=== PATIENT | female | born 1960 | race African-American/Black ===

== ENCOUNTER 2018-05-08 20:40 | Emergency (ER) | payer SELFPAY ==
[~2018-05-08] VITALS: Ht 162.6 cm; Wt 69.0 kg
[~2018-05-08 20:40] MED LIST: AMLO10TA80; BENA20TA10; HYDR25TA
[2018-05-08] MEDS ORDERED: MORPHINE SULFATE 4 MG/ML CPJ (NOT FOR IM USE) IV ONE (21:45)
[2018-05-08] MEDS ORDERED: MORPHINE SULFATE 2 MG/ML CPJ (NOT FOR IM USE) IV NR (21:45)
[2018-05-08] MEDS ORDERED: MORPHINE SULFATE 10 MG/ML CPJ IV NR (21:57)
[2018-05-08] MEDS ORDERED: LIDOCAINE HCL 1% 20ML VIAL (Pyxis) INJ INFIL ONE (22:15)
[2018-05-08] MEDS ORDERED: ONDANSETRON HCL 4MG/2ML INJ IV ONE (23:15)
[2018-05-09 00:39] VITALS: BP 149/82
== END 2018-05-09 00:42 | disposition home or self-care (01) ==
LOC: ER 23:24
DX: S82.102A Unspecified fracture of upper end of left tibia, initial encounter for closed fracture (principal); I10 Essential (primary) hypertension; Z90.49 Acquired absence of other specified parts of digestive tract; Z79.899 Other long term (current) drug therapy; X58.XXXA Exposure to other specified factors, initial encounter; Y93.89 Activity, other specified; Y92.89 Other specified places as the place of occurrence of the external cause; Y99.8 Other external cause status
CPT/HCPCS: 27788; 73590; 73610; 96374; 96375; 99284; J2270; J2405; J3490